=== PATIENT | male | born 1960 | race African-American/Black ===

== ENCOUNTER 2020-09-23 14:28 | Emergency (ER) | payer MEDICARE, MEDICAID ==
[~2020-09-23] VITALS: Ht 185.4 cm; Wt 76.1 kg
[2020-09-23 15:07] LABS: BASOPHILS % (AUTO) 1 % (0-1); EOSINOPHILS % (AUTO) 0 % (1-7); LYMPHOCYTES % (AUTO) 16 % (22-44); MEAN CORPUSCULAR HEMOGLOBIN 32.5 pg (27.5-34.5); MEAN CORPUSCULAR HGB CONC 33.1 g/dL (33.2-36.2); MEAN PLATELET VOLUME 8.7 fL (7.4-10.4); MONOCYTES % (AUTO) 11 % (2-9); NEUTROPHILS % (AUTO) 72 % (42-75); PLATELET COUNT 316 x10^3/uL (130-400); RED BLOOD COUNT 4.28 x10^6/uL (4.38-5.82); RED CELL DISTRIBUTION WIDTH 13.4 % (9.4-14.8)
[2020-09-23 15:10] LABS: MD NO
[2020-09-23 15:21] LABS: ALANINE AMINOTRANSFERASE 15 U/L (12-78); ALBUMIN 3.4 g/dL (3.4-5.0); ANION GAP 7 mmol/L (5-15); CALCIUM 9.5 mg/dL (8.5-10.1); CHLORIDE 100 mmol/L (98-107); CREATININE 0.84 mg/dL (0.7-1.3)
--- NOTE | 2020-09-23 15:24 | NUR ---
PT AMBULATED TO ROOM FROM TRIAGE. PT CO LEFT HEAD NAD EAR PAIN X1 WEEK. PT STATED THAT PAIN IS WORSE WITH COUGHING.PT HAS BEEN TAKING TYLENOL FOR PAIN AND STATED THAT IT HAS BEEN HELPING. PT DENIES ANY RECENT TRAUMA, FEVER OR VISION CHANGES.
[2020-09-23 15:26] LABS: ALKALINE PHOSPHATASE 97 U/L (45-117); BILIRUBIN,TOTAL 0.6 mg/dL (0.2-1.0); TOTAL PROTEIN 9.1 g/dL (6.4-8.2)
--- NOTE | 2020-09-23 16:02 | NUR ---
TASK: TO CT SCAN
--- NOTE | 2020-09-23 16:20 | NUR ---
pt returns from CT
[2020-09-23 16:33] VITALS: BP 101/68
--- NOTE | 2020-09-23 17:20 | NUR ---
DISCHARGE INSTRUCTIONS REVIEWED WITH PT. ALL QUESTIONS ANSWERED AT THIS TIME.
== END 2020-09-23 17:22 | disposition home or self-care (01) ==
LOC: ED 17:00
DX: R51.9 Headache, unspecified (principal)
CPT/HCPCS: 36415; 70450; 80053; 80299; 85025; 99284

== ENCOUNTER 2020-09-29 06:26 | Emergency (ER) | payer MEDICARE, MEDICAID ==
[~2020-09-29] VITALS: Ht 185.4 cm; Wt 76.1 kg
[2020-09-29 06:29] VITALS: BP 148/70
--- NOTE | 2020-09-29 06:58 | NUR ---
ASSUMED PT CARE
--- NOTE | 2020-09-29 07:02 | NUR ---
PT REPORTS THAT HE STAYS AT THE RETIREMENT AND THINKS THAT HE NEEDS ABX HE HAS BEEN HAVING PRODUCTIVE COUGH AND PROVIDED SAMPLE OF WHAT HE HAD COUGHED UP. PT REPORTS HE TOOK SOMETHING FOR HIS HEAD, IT IS BETTER RIGHT NOW, PREVIOUSLY IT WAS ON HIS LEFT SIDE OF HIS HEAD. "IT ISN'T A HEADACHE, ITS A PAIN" PT DENIES MEDICAL HX, AND NO HOME MEDS.
--- NOTE | 2020-09-29 07:09 | NUR ---
DR. TAMEZ AT BEDSIDE.
--- NOTE | 2020-09-29 08:37 | NUR ---
Patient given discharge instructions and they have confirmed that they understand the instructions. Patient ambulatory with steady gait.
== END 2020-09-29 08:38 | disposition home or self-care (01) ==
LOC: ED 07:37
DX: G43.C0 Periodic headache syndromes in child or adult, not intractable (principal); J32.0 Chronic maxillary sinusitis; R07.9 Chest pain, unspecified
CPT/HCPCS: 71045; 99283

== ENCOUNTER 2020-10-05 12:25 | Emergency (ER) | payer MEDICARE, MEDICAID ==
[~2020-10-05] VITALS: Ht 185.4 cm; Wt 75.7 kg
--- NOTE | 2020-10-05 13:36 | NUR ---
GRADUATE ENGINEER: PT TO ROOM FROM LOBBY
--- NOTE | 2020-10-05 13:58 | NUR ---
PT PRESENTS TO ED WITH C/O PENILE PAIN AND BLOODY EJACULATION. PT A&O, RESPS EVEN AND UNLABORED, VSS, NADN. MONITORS ATTACHED, CALL LIGHT IN REACH.
--- NOTE | 2020-10-05 14:12 | NUR ---
ERMD SAHM AT BEDSIDE FOR EVAL.
[2020-10-05] MEDS ORDERED: AZITHROMYCIN 250 MG TABLET ONE (14:24)
[2020-10-05] MEDS ORDERED: CEFTRIAXONE 1,000 MG ONE (14:24)
[2020-10-05] MEDS ORDERED: CEFTRIAXONE 1,000 MG IM ONE (14:30)
[2020-10-05] MEDS ORDERED: AZITHROMYCIN 500 MG TABLET PO ONE (14:30)
[2020-10-05 14:54] LABS: MICROSCOPIC INDICATED
[2020-10-05 15:24] VITALS: BP 140/70
--- NOTE | 2020-10-05 15:24 | NUR ---
RECEIEVED REPORT FORM LUIS BEAL
--- NOTE | 2020-10-05 15:26 | NUR ---
PT ATTACHED TO MONITORS. VSS. PT IN NAD.
--- NOTE | 2020-10-05 16:05 | NUR ---
DISCHARGE INSTRUCTIONS REVIEWED, PT VERBALIZED UNDERSTANDING. AMBULATORY TO DISCHARGE DESK WITH STEADY GAIT.
== END 2020-10-05 16:06 | disposition home or self-care (01) ==
LOC: ED 13:58
DX: N34.2 Other urethritis (principal); A56.01 Chlamydial cystitis and urethritis; A54.9 Gonococcal infection, unspecified
CPT/HCPCS: 81001; 87086; 96372; 99283; J0696; 87077

== ENCOUNTER 2020-10-07 04:56 | Emergency (ER) | payer MEDICARE, MEDICAID ==
[~2020-10-07] VITALS: Ht 185.4 cm; Wt 77.3 kg
--- NOTE | 2020-10-07 05:34 | NUR ---
URINE SENT TO LAB
--- NOTE | 2020-10-07 06:08 | NUR ---
ASSIST RN: RE-EVALUATION DONE. PATIENT DISCHARGED WITH PRESCRIPTION AND INSTRUCTION. VERBALIZED UNDERSTANDING.
[2020-10-07 06:09] VITALS: BP 110/71
== END 2020-10-07 06:11 | disposition home or self-care (01) ==
LOC: ED 05:26
DX: A56.01 Chlamydial cystitis and urethritis (principal)
CPT/HCPCS: 87491; 87591; 99283